=== PATIENT | male | born 1980 | race Caucasian/White ===

== ENCOUNTER 2020-12-31 05:46 | Emergency (ER) | payer MEDICAID, OTHER ==
[~2020-12-31] VITALS: Ht 185.4 cm; Wt 100.0 kg
[2020-12-31 05:59] VITALS: BP 126/71
[2020-12-31] MEDS ORDERED: PRED20TA PO (07:34)
[2020-12-31] MEDS ORDERED: dexamethasone 4mg tablet PO ONE (07:35)
== END 2020-12-31 08:17 | disposition home or self-care (01) ==
LOC: ER 05:47
DX: J02.9 Acute pharyngitis, unspecified (principal); R09.81 Nasal congestion; H92.02 Otalgia, left ear; Z79.899 Other long term (current) drug therapy
CPT/HCPCS: 99283